=== PATIENT | male | born 1995 | race Caucasian/White ===

== ENCOUNTER 2020-10-03 00:19 | Emergency (ER) | payer SELFPAY ==
[2020-10-03 00:25] VITALS: BP 154/75; PULSE 83; RESP 16; TEMP 36.7; O2SAT 98; BMI 38.0
--- NOTE | 2020-10-03 00:25 | XRR_ITS ---
PROCEDURE INFORMATION: Exam: XR Chest, 1 View Exam date and time: 10/03/2020 12:44 AM Age: 25 years old Clinical indication: Left-sided chest pain; Additional info: Cp x 2 days TECHNIQUE: Imaging protocol: XR of the chest Views: 1 view. COMPARISON: No relevant prior studies available. FINDINGS: Lungs: No consolidation. Pleural space: No pleural effusion. No pneumothorax. Heart/Mediastinum: No cardiomegaly. Bones/joints: No acute fracture. XR/XR chest 1V portable [id number] IMPRESSION: No acute findings.
[2020-10-03 00:31] VITALS: BP 163/82; PULSE 123; RESP 24; O2SAT 98
--- NOTE | 2020-10-03 00:31 | ECG_ITS ---
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 Measurements Intervals [place] Rate: 82 P: 20 CO: 200 QRS: 26 QRSD: 100 T: 21 QT: 362 QTc: 423 Interpretive Statements SINUS RHYTHM No previous ECG available for comparison Electronically Signed On 10-03-2020 20:12:33 MILL SET UP by Josephine Newell M.D. [id number]
--- NOTE | 2020-10-03 00:36 | W.ED.CHESTPA ---
HPI - Chest Pain General: Chief Complaint: Chest Pain Stated Complaint: suspects he's having heart attack/chest pain Time Seen by Provider: 10/03/20 00:25 Source: patient Mode of arrival: ambulatory Limitations: no limitations History of Present Illness: HPI narrative: 25-year-old male who states he has been having chest pain and left arm pain for 2 months. Patient states the pain is been sharp and is worse with movement of his left arm especially over his head. He denies any improving factors. States the pain over the last 2 days has gotten worse. He denies any shortness of breath. Denies any cough or fever. Denies any nausea or vomiting. He has no history of heart disease. Associated symptoms: Deny abdominal pain, dyspnea, fever(s), nausea or vomiting Review of Systems Const: Denies: fever(s), chills, body aches or change in appetite Eyes: Denies: blurry vision or eye discomfort ENMT: Denies: throat pain or dental pain Card: Reports: chest pain Resp: Denies: dyspnea GI: Denies: abdominal pain, nausea, vomiting or diarrhea : Denies: dysuria Musc: Denies: neck pain or back pain Skin/Breast: Denies: rash Neuro: Denies: headache(s) Psych: Denies: depression Mikhail/Lymph: Denies: easy bruising All/Imm: Denies: urticaria Physical Exam Const: COMMON NORMALS: no acute distress, patient oriented x3 and healthy appearing HENMT: COMMON NORMALS: normocephalic and atraumatic HEAD & SCALP: normocephalic and atraumatic Eye: COMMON NORMALS: Equal, round and reactive pupils present and EOMs intact bilaterally PUPIL: Yes Equal, round and reactive pupils present Neck/C-Spine: COMMON NORMALS: full ROM and supple Chest: COMMONS NORMALS: normal inspection of the chest and normal palpation of entire chest wall Resp: COMMON NORMALS: normal respiratory effort, No retractions, No use of accessory muscles and clear to auscultation bilaterally AUSCULTATION: clear to auscultation bilaterally Cardio: COMMON NORMALS: regular rate, regular rhythm and No murmurs present (Cardio) RATE: regular rate RHYTHM: regular rhythm GI: COMMON NORMALS: Normal to inspection, nondistended, normoactive bowel sounds present, Soft to palpation, non-tender and no masses PALPATION: Yes Soft to palpation Extremity: COMMON NORMALS: normal to inspection and full ROM Neuro: COMMON NORMALS: patient oriented x3, moves all extremities and no focal motor deficits Psych: COMMON NORMALS: mental status grossly normal, Normal thought process present and cooperative THOUGHT PROCESS: Normal thought process present Skin: COMMON NORMALS: no rashes or lesions noted and no wounds GENERAL SKIN EXAM: no rashes or lesions noted Course Reevaluation(s): Reevaluation #1: On the suicidal questionnaire patient answered yes to being suicidal. I went spoke to him he states that yes with his ADHD is suicidal thoughts every day but he deals with it and has no plan and does not feel like he is a threat to kill himself. He states he was just answering the questions honestly. I spoke to Dr. Anderson psychiatry to clear patient. He states that he will see him first thing in the morning. Time: 00:54 Vital Signs: Vital signs: Vital Signs Temperature 98.0 F 10/03/20 00:25 Pulse Rate 123 H 10/03/20 00:31 Respiratory Rate 24 H 10/03/20 00:31 Blood Pressure 163/82 10/03/20 00:31 Pulse Oximetry 98 10/03/20 00:31 MDM - Chest Pain MDM Narrative: Medical decision making narrative: Patient presents with chest pain is atypical in nature. He is young and healthy EKG troponin x-ray are all normal. Patient was assessed by Dr. Chan as well for his depression and he feels he is stable for discharge he is no imminent threat to himself. I believe patient is stable as well. He is to follow-up his PCP and return if worsening. He has no signs of pulmonary embolism or aortic dissection. Lab Data: Labs: Lab Results 10/03/20 10/03/20 10/03/20 Range/Units 01:50 01:50 01:50 WBC 14.3 H (4.0-10.0) 10^3/ uL RBC 4.93 (4.1-5.3) 10^6/u L Hgb 15.3 (11.7-16.6) g/dL Hct 43.5 (42.0-52.0) % MCV 88.2 (80-94) fL MCH 31.0 (28.0-34.0) pg MCHC 35.2 (30.0-36.0) g/dL RDW 11.6 L (12.1-15.1) % Plt Count 245 (130-400) 10^3/c mm MPV 10.5 H (7.4-10.4) fL Neut % (Auto) 59.3 % Lymph % (Auto) 31.5 % [place] % (Auto) 7.0 % Eos % (Auto) 1.6 % Baso % (Auto) 0.4 % Neut # (Auto) 8.46 H (1.8-7.7) 10^3/u L Lymph # (Auto) 4.5 (0.8-4.8) 10^3/u L [place] # (Auto) 1.0 H (0.2-0.9) 10^3/u L Eos # (Auto) 0.2 (0.0-0.8) 10^3/u L Baso # (Auto) 0.1 (0.0-0.1) 10^3/u L Nucleated RBC % (a uto) 0 % Nucleated RBCs # 0.0 /100WBC Sodium 138 (136-145) mmol/L Potassium 3.7 (3.5-5.1) mmol/L Chloride 100 (98-107) mmol/L Carbon Dioxide 24 (22-29) mmol/L Anion Gap 17.7 (5-19) BUN 22 H (6-20) mg/dL Creatinine 0.7 (0.7-1.2) mg/dL GFR Calculation 136.3 H (90-130) mL/min Glucose 102 (65-115) mg/dL Calculated Osmolal ity 290 (285-295) mOsm/k g Calcium 9.5 (8.5-10.5) mg/dL Total Bilirubin 0.3 (0.15-1.2) mg/dL AST 22 (0-40) U/L ALT 36 (0-41) U/L Alkaline Phosphata se 76 (40-130) IU/L Troponin T Baselin e 6 (0-15) ng/L Total Protein 6.9 (6.6-8.7) g/dL Albumin 4.3 (3.5-5.2) g/dL Globulin 2.6 (1.3-4.6) g/dL EKG Data^: EKG 1: Attestation: I personally reviewed and interpreted this EKG as follows: EKG interpretation date: 10/03/20 EKG interpretation time: 00:32 Interpretation: nsr hr [address] or t wave abnormalities qrs 100 qtc 400 Discharge Plan Discharge Patient Disposition: Home Clinical Impression: Chest pain Qualifiers: Chest pain type: unspecified Qualified Code(s): R07.9 - Chest pain, unspecified Depression Qualifiers: Depression Type: unspecified Qualified Code(s): F32.9 - Major depressive disorder, single episode, unspecified Condition: Stable Discharge Orders: Discharge ED (Routine); Ordered 10/03/20 Ordered By: Kayleigh Boswell Discharge Diet: Advance as tolerated Discharge Activity: Resume usual activity Patient Instructions: Chest Pain (ED) Coding Level of Care Code ED Assistant Golf 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
[2020-10-03 02:08] VITALS: BP 147/78; PULSE 84; RESP 15; O2SAT 98
[2020-10-03 02:13] LABS: Basophils # 0.1 10^3/uL (0.0-0.1); Basophils % 0.4 %; Eosinophils # 0.2 10^3/uL (0.0-0.8); Eosinophils % 1.6 %; Hematocrit 43.5 % (42.0-52.0); Hemoglobin 15.3 g/dL (11.7-16.6); Lymphocytes # 4.5 10^3/uL (0.8-4.8); Lymphocytes % 31.5 %; Mean Corpuscular HGB Conc 35.2 g/dL (30.0-36.0); Mean Corpuscular Volume 88.2 fL (80-94); Mean Platelet Volume 10.5 fL (7.4-10.4); Neutrophils # 8.46 10^3/uL (1.8-7.7); Neutrophils % 59.3 %; Nucleated Red Blood Cells % 0 %; Platelet Count 245 10^3/cmm (130-400); Red Blood Count 4.93 10^6/uL (4.1-5.3); Red Cell Distribution Width 11.6 % (12.1-15.1); White Blood Count 14.3 10^3/uL (4.0-10.0)
--- NOTE | 2020-10-03 02:21 | PC.NURSE ---
pt refused ativan due to concerns of possible opioid relapse
[2020-10-03 02:40] LABS: Alanine Aminotransferase 36 U/L (0-41); Albumin Level 4.3 g/dL (3.5-5.2); Alkaline Phosphatase 76 IU/L (40-130); Anion Gap 17.7 (5-19); Aspartate Amino Transferase 22 U/L (0-40); Blood Urea Nitrogen 22 mg/dL (6-20); Calcium 9.5 mg/dL (8.5-10.5); Carbon Dioxide 24 mmol/L (22-29); Chloride 100 mmol/L (98-107); Globulin 2.6 g/dL (1.3-4.6); Glomerular Filtration Rate 136.3 mL/min (90-130); Glucose 102 mg/dL (65-115); Osmolality Calculated 290 mOsm/kg (285-295); Potassium 3.7 mmol/L (3.5-5.1); Sodium 138 mmol/L (136-145); Total Bilirubin 0.3 mg/dL (0.15-1.2); Total Protein 6.9 g/dL (6.6-8.7)
[2020-10-03 02:43] LABS: Troponin(5th) Baseline 6 ng/L (0-15)
[2020-10-03 03:00] VITALS: BP 121/65; PULSE 65; RESP 18; O2SAT 100
--- NOTE | 2020-10-03 03:00 | PC.NURSE ---
during initial triage, pt yes to mental health assessment regarding depression and suicide. Pt becoming agitated when informed by the physician that he will have a mental health eval. Pt refusing all medical tx, until he has been cleared by mental health physician. notified. Pt consented to blodd draw after mental health clearance. Pt still refusing ativan due to possible relapse of opioid dependence. notified
== END 2020-10-03 03:02 | disposition home or self-care (01) ==
PROVIDERS: Emergency Provider Emergency Medicine
DX: R07.9 Chest pain, unspecified (principal); F32.9 Major depressive disorder, single episode, unspecified
CPT/HCPCS: 12345; 71045; 80053; 84484; 85025; 93005; 99281; 99284

== ENCOUNTER → 2021-09-19 09:44 | Outpatient (BNVA) | payer BC, SELFPAY | PROVIDERS: PCP Family Medicine; Visit Provider Family Medicine | DX: R68.82 Decreased libido (principal); R53.83 Other fatigue | CPT/HCPCS: 84403; 84443 ==

== ENCOUNTER 2021-11-14 13:00 | Outpatient (CLI) | payer BC, SELFPAY | END 2021-11-14 13:01 | disposition home or self-care (01) | PROVIDERS: PCP Family Medicine; Visit Provider Physician Assistant | DX: G47.10 Hypersomnia, unspecified (principal) | CPT/HCPCS: G0399 ==

== ENCOUNTER 2021-12-18 08:16 | Outpatient (CLI) | payer BC, SELFPAY ==
[2021-12-18 08:37] VITALS: BMI 40.6
--- NOTE | 2021-12-18 08:38 | ECG_ITS ---
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 Interpretive Statements NAME OF STUDY: TREADMILL STRESS TEST INDICATION: Chest Pain Baseline blood pressure of 133/95 mm Hg, heart rate of 96 beats per minute and oxygen saturation of 95%. EKG showed normal sinus rhythm, normal axis with normal ST-Ts. Poor anterior R wave progression. The patient exercised for 7 minutes 34 seconds on a standard Guero protocol. Patient attained a maximum heart rate of 186 beats per minute(96% of the maximum predicted heart rate) with a blood pressure at the peak exercise of 183/90 mm Hg and oxygen saturation of 95%. The EKG at the peak exercise revealed sinus tachycardia with no significant ST-T wave changes. Patient did not have any chest pain or any significant arrhythmis with the exercise. The study was terminated due to maximal effort. During the recovery phase, there were no new changes. Blood pressure at the end of the recovery phase was 137/100 mm Hg with a heart rate of 105 beats per minute and oxygen saturation 96%. CONCLUSION: 1. Normal EKG response to treadmill exercise. 2. No exercise-induced chest pain or cardiac arrhythmia. 3. Good exercise tolerance for age, attained a maximum of 10.2 METs. Maximum VO2 of 35.7 mL/kg/min. 4. Baseline hypertension with normal response to exercise. 5. Clarke treadmill score of 7.5, suggestive of low risk. RESULTS TO JOSE RUTLEDGE Electronically Signed On 12-18-2021 17:10:02 CDT by Josephine Newell M.D. [id number]
[2021-12-18 09:15] VITALS: BP 136/83; PULSE 103
== END 2021-12-18 08:17 | disposition home or self-care (01) ==
LOC: CDL 08:18
PROVIDERS: PCP Family Medicine; Visit Provider Physician Assistant
DX: R07.9 Chest pain, unspecified (principal); I10 Essential (primary) hypertension
CPT/HCPCS: 93017

== ENCOUNTER → 2022-12-02 08:27 | Outpatient (BNVA) | payer SELFPAY | PROVIDERS: PCP Family Medicine; Visit Provider Family Medicine | DX: R79.89 Other specified abnormal findings of blood chemistry (principal); Z68.41 Body mass index [BMI] 40.0-44.9, adult; M31.6 Other giant cell arteritis | CPT/HCPCS: 80053; 80061; 82040; 84270; 84403; 85025; 85651; 86140 ==

== ENCOUNTER → 2024-05-10 12:13 | Outpatient (BNVA) | payer MEDICAID, SELFPAY | PROVIDERS: PCP Family Medicine; Visit Provider Family Medicine | DX: G43.909 Migraine, unspecified, not intractable, without status migrainosus (principal) | CPT/HCPCS: 80053; 80061; 80307; 84439; 84443; 85025; 85651; 86140 ==

== ENCOUNTER 2024-09-17 10:06 | Outpatient (CLI) | payer MEDICAID, SELFPAY ==
--- NOTE | 2024-09-17 10:15 | US_ITS ---
WS: [id number] Limited abdomen ultrasound. HISTORY: LEFT upper quadrant mass. Ultrasound directed to the LEFT upper quadrant in the area of interest. In the area of interest is a lobulated mildly heterogeneous mass with areas of decreased and increased echogenicity. Entire lobula tion measures 3.7 x 1.5 cm. There is a central component which is more echogenic measuring 1.3 x 0.6 cm. There is no increased vascularity. US/US abdomen limited [id number] IMPRESSION: Palpable area in the LEFT upper abdomen is most consistent with a lipoma.
== END 2024-09-17 10:07 | disposition home or self-care (01) ==
LOC: RAD 10:11
PROVIDERS: PCP Family Medicine; Visit Provider Family Medicine
DX: R19.02 Left upper quadrant abdominal swelling, mass and lump (principal)
CPT/HCPCS: 76705

== ENCOUNTER 2024-11-16 23:23 | Emergency (ER) | payer SELFPAY ==
[2024-11-16 23:28] VITALS: BP 146/97; PULSE 70; RESP 14; TEMP 36.5; O2SAT 97; BMI 38.7
--- NOTE | 2024-11-17 01:21 | ED_ITS ---
HPI - General Adult 2 General: Chief complaint: General Medical Stated complaint: Left Arm Numb\with Shooting Pains Time Seen by Provider: 11/17/24 01:24 History of Present Illness: Patient presents to the ER with complaints of shooting pain and tingling up his left arm from his fingers up into his neck and up into the left side of his head for the last several days. He also described a lump in his left anterior forearm. He says he has had these before in the past but is not as bad. He says the pain follows the path of a vein from his hand up to his elbow to his shoulder up into his neck. He said over the past few days the pain has gotten worse but is actually not too bad right now. And the lump is actually gone down. Patient denies any overt trauma overuse or any other complaints. Related Data Previous Rx's ?Medication ?Instructions ?Recorded propranolol 10 mg tablet 10 mg PO BID PRN anxiety #60 tabs 06/18/24 trazodone 50 mg tablet 50 mg PO DIRECTED PRN sle ep #60 09/20/24 tabs dextroamphetamine-amphetamine ER 40 mg (2 x 20 mg) PO QAM 30 days 11/10/24 20 mg 24hr capsule,extend release #60 caps (Adderall XR) Allergies Allergy/AdvReac Type Severity Reaction Status Date / Time No Known Allergies Allergy Verified 11/16/24 23:31 Review of Systems 2 General: Reports: 10 or more systems reviewed and unremarkable except in HPI and below PFSH ED 2 PFSH: Medical History ADHD (attention deficit hyperactivity disorder), 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 Generalized anxiety disorder Major depressive disorder, recurrent severe without psychotic features Chronic post-traumatic stress disorder Psychiatric care Scoliosis Surgical History History of ankle surgery Family History Grandfather Cancer colorectal--maternal Mother Fibromyalgia Hypertension Diabetes Arrhythmia Father Hypertension Stroke, Onset Age: 32 Diabetes Other CAD (coronary artery disease) Hyperlipidemia Lung disease Denies family history of Clotting disorder Dementia Psychiatric illness Chronic kidney disease (CKD) Anesthesia complication Bleeding disorder Social History (Reviewed 11/17/24 @ 01:23 by LIT Wilkerson Smoking and tobacco/nicotine status: former use of tobacco/nicotine Alcohol intake: former Former alcohol use details: drank heavily in high school Substance/Drug Use: current Substance/Drug use frequency: few times a month Other substance/drug use details: Medicinal Lives independently: Yes Marital status: Number of children: 1 service: No Current occupational status: employed 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 Current gender identity: Male Special kori needs: No Agree to transfusion: Yes Physical Exam 2 Const: COMMON NORMALS: no acute distress, average body habitus, patient oriented x3, no limitations, healthy appearing, alert and well nourished HENMT: COMMON NORMALS: normocephalic, atraumatic, hearing grossly normal bilaterally, external ears normal, Normal external nose present, moist oral mucous membranes and oropharynx normal HEAD & SCALP: normocephalic and atraumatic NOSE: Normal external nose present EXTERNAL EAR: Yes external ears normal Eye: COMMON NORMALS: Equal, round and reactive pupils present, EOMs intact bilaterally, conjunctivae normal and no scleral icterus CONJUNCTIVA: Yes conjunctivae normal PUPIL: Yes Equal, round and reactive pupils present Neck/C-Spine: COMMON NORMALS: no JVD Chest: COMMONS NORMALS: normal inspection of the chest and normal palpation of entire chest wall Resp: COMMON NORMALS: normal respiratory effort, No retractions, No use of accessory muscles and clear to auscultation bilaterally AUSCULTATION: clear to auscultation bilaterally Cardio: COMMON NORMALS: no JVD, regular rate, regular rhythm, S1 normal heart sound present, S2 normal heart sound present, No gallops present (Cardio), No clicks present (Cardio), No murmurs present (Cardio) and No rub (Cardio) R ATE: regular rate RHYTHM: regular rhythm HEART SOUNDS: S1 normal heart sound present and S2 normal heart sound present Extremity: NARRATIVE EXTREMITY EXAM: No evidence indicative exam of left arm from hand forearm elbow upper arm shoulder neck other than very small possible lump on anterior surface left forearm within the patient's tattoo. Minimal tenderness with palpation otherwise benign exam. Neuro: COMMON NORMALS: patient oriented x3 SENSORIUM/ORIENTATION: Yes alert Course 2 Vital Signs: Vital signs: Vital Signs Temperature 97.7 F 11/16/24 23:28 Pulse Rate 74 11/17/24 03:47 Respiratory Rate 16 11/17/24 03:47 Blood Pressure 159/72 11/17/24 03:47 Pulse Oximetry 98 11/17/24 03:47 Oxygen Delivery Me thod Room Air 11/17/24 01:36 MDM - General Adult Medical Decision Making Lab work was reviewed, CBC CMP CRP all normal. Patient be discharged home and should follow-up with his PCP for further evaluation and treatment. Medical Records I reviewed the patient's medical records. Lab Data I reviewed the patient's lab results. 11/17/24 02:07 11/17/24 02:07 Laboratory Results WBC 11.25 10^3/uL (3.29-11.43) 11/17/24 02:07 RBC 4.63 10^6/uL (3.85-5.65) 11/17/24 02:07 Hgb 14.20 g/dL (11.27-16.99) 11/17/24 02:07 Hct 41.1 % (37-53) 11/17/24 02:07 MCV 88.8 fl (82-101) 11/17/24 02:07 MCH 30.7 pg (27-33) 11/17/24 02:07 MCHC 34.5 g/dL (30-55) 11/17/24 02:07 RDW 12.8 % (12.1-15.1) 11/17/24 02:07 Plt Count 264 10^3/cmm (157-399) 11/17/24 02:07 MPV 10.2 fL (7.4-10.4) 11/17/24 02:07 Neut % (Auto) 45.3 % 11/17/24 02:07 Lymph % (Auto) 42.5 % 11/17/24 02:07 [place] % (Auto) 7.6 % 11/17/24 02:07 Eos % (Auto) 4.1 % 11/17/24 02:07 Baso % (Auto) 0.4 % 11/17/24 02:07 Neut # (Auto) 5.10 10^3/uL (1.8-7.7) 11/17/24 02:07 Lymph # (Auto) 4.8 10^3/uL (0.8-4.8) 11/17/24 02:07 [place] # (Auto) 0.9 10^3/uL (0.2-0.9) 11/17/24 02:07 Eos # (Auto) 0.5 10^3/uL (0.0-0.8) 11/17/24 02:07 Baso # (Auto) 0.1 10^3/uL (0.0-0.1) 11/17/24 02:07 Nucleated RBC % (auto) 0 % 11/17/24 02:07 Nucleated RBCs # 0.0 /100WBC 11/17/24 02:07 Sodium 143 mmol/L (136-145) 11/17/24 02:07 Potassium 3.9 mmol/L (3.5-5.1) 11/17/24 02:07 Chloride 103 mmol/L (98-107) 11/17/24 02:07 Carbon Dioxide 28 mmol/L (22-29) 11/17/24 02:07 Anion Gap 15.9 (5-19) 11/17/24 02:07 BUN 15 mg/dL (6-20) 11/17/24 02:07 Creatinine 0.8 mg/dL (0.7-1.2) 11/17/24 02:07 GFR Calculation 113.5 mL/min (90-130) 11/17/24 02:07 Glucose 115 mg/dL (65-115) 11/17/24 02:07 Calculated Osmolality 298 mOsm/kg (285-295) H 11/17/24 02:07 Calcium 9.3 mg/dL (8.5-10.5) 11/17/24 02:07 Total Bilirubin 0.4 mg/dL (0.15-1.2) 11/17/24 02:07 AST 16 U/L (0-40) 11/17/24 02:07 ALT 26 U/L (0-41) 11/17/24 02:07 Alkaline Phosphatase 73 U/L (40-130) 11/17/24 02:07 C-Reactive Protein 3.0 mg/L (0.0-4.9) 11/17/24 02:07 Total Protein 7.1 g/dL (6.6-8.7) 11/17/24 02:07 Albumin 4.4 g/dL (3.5-5.2) 11/17/24 02:07 Globulin 2.7 g/dL (1.3-4.6) 11/17/24 02:07 TSH 2.81 uIU/mL (0.27-4.20) 11/17/24 02:07 All radiology interpretation(s) finalized by discharge Discharge Plan Discharge Patient Disposition: Home Clinical Impression: Paresthesia and pain of left extremity Condition: Stable Prescriptions: No Action propranolol 10 mg tablet 10 mg PO BID PRN (Reason: anxiety) Qty: 60 6RF Rx Instructions: May take one tablet twice per day as needed for anxiety trazodone 50 mg tablet 50 mg PO DIRECTED PRN (Reason: sleep) Qty: 60 3RF Rx Instructions: May take one to two tablets 30 min prior to bedtime as needed for sleep dextroamphetamine-amphetamine [Adderall XR] 20 mg capsule,extended release 24hr 40 mg PO QAM 30 Days Qty: 60 0RF Rx Instructions: Take two capsules at 6 am Discharge Orders: Discharge ED (Routine); Ordered 11/17/24 Ordered By: Christian Spann Referrals: Yovani Parada MD [Primary Care Provider] - 1 week Patient Instructions: Paresthesia (ED) Activity Restrictions/Additional Instructions: Your evaluation by clinical exam and lab work did not reveal any acute cause of your symptomatology. Your inflammatory markers are normal, your white blood cell count is normal, as is your thyroid your liver and your kidneys. Please follow-up with your family practice physician within the next 7 days for further evaluation and treatment. Thank you for choosing [facility] for your healthcare needs today. Please realize that you were seen in the emergency department and that we are providing you with an emergency medical screening exam and this may not be a complete and all exclusive of all testing and/or medical workup we may need to determine your element or severity of your illness. It is very important that you follow-up as instructed with your primary care provider or specialist for the additional evaluation and to discuss your medical treatment plan. You may return to the emergency department should you have concerns or if your condition changes or worsens in any way. Print Language: Swedish Coding Level of Care Code ED Baseball Club Manager for Alyson Gerber
[2024-11-17 01:36] VITALS: BP 124/95; PULSE 80; RESP 16; O2SAT 98
[2024-11-17 02:31] LABS: Basophils # 0.1 10^3/uL (0.0-0.1); Basophils % 0.4 %; Eosinophils # 0.5 10^3/uL (0.0-0.8); Eosinophils % 4.1 %; Hematocrit 41.1 % (37-53); Lymphocytes # 4.8 10^3/uL (0.8-4.8); Lymphocytes % 42.5 %; Mean Corpuscular HGB Conc 34.5 g/dL (30-55); Mean Corpuscular Hemoglobin 30.7 pg (27-33); Mean Corpuscular Volume 88.8 fl (82-101); Mean Platelet Volume 10.2 fL (7.4-10.4); Monocytes # 0.9 10^3/uL (0.2-0.9); Monocytes % 7.6 %; Neutrophils % 45.3 %; Nucleated Red Blood Cells % 0 %; Platelet Count 264 10^3/cmm (157-399); Red Blood Count 4.63 10^6/uL (3.85-5.65); Red Cell Distribution Width 12.8 % (12.1-15.1); White Blood Count 11.25 10^3/uL (3.29-11.43)
[2024-11-17 03:10] LABS: Alanine Aminotransferase 26 U/L (0-41); Albumin Level 4.4 g/dL (3.5-5.2); Alkaline Phosphatase 73 U/L (40-130); Anion Gap 15.9 (5-19); Aspartate Amino Transferase 16 U/L (0-40); Blood Urea Nitrogen 15 mg/dL (6-20); Calcium 9.3 mg/dL (8.5-10.5); Carbon Dioxide 28 mmol/L (22-29); Chloride 103 mmol/L (98-107); Creatinine Clr Calc Pharmacy 177.1993; Globulin 2.7 g/dL (1.3-4.6); Glomerular Filtration Rate 113.5 mL/min (90-130); Glucose 115 mg/dL (65-115); Osmolality Calculated 298 mOsm/kg (285-295); Potassium 3.9 mmol/L (3.5-5.1); Sodium 143 mmol/L (136-145); Total Bilirubin 0.4 mg/dL (0.15-1.2); Total Protein 7.1 g/dL (6.6-8.7)
[2024-11-17 03:13] LABS: Thyroid Stimulating Hormone 2.81 uIU/mL (0.27-4.20)
[2024-11-17 03:47] VITALS: BP 159/72; PULSE 74; RESP 16; O2SAT 98
== END 2024-11-17 03:49 | disposition home or self-care (01) ==
PROVIDERS: Emergency Provider Emergency Medicine; PCP Family Medicine
DX: M79.602 Pain in left arm (principal); R20.2 Paresthesia of skin; Z87.891 Personal history of nicotine dependence
CPT/HCPCS: 36415; 80053; 84443; 85025; 86140; 99283

== ENCOUNTER → 2025-03-03 10:36 | Outpatient (BNVA) | payer MEDICAID, SELFPAY | PROVIDERS: PCP Family Medicine; Referring Provider Nurse Practitioner Psychiatric/Mental Health; Visit Provider Psychiatry & Neurology Neurology | DX: G43.909 Migraine, unspecified, not intractable, without status migrainosus (principal) | CPT/HCPCS: 36415; 82306; 82607; 82746; 83735; 83921 ==

== ENCOUNTER 2025-03-21 07:48 | Outpatient (CLI) | payer MEDICAID, SELFPAY ==
--- NOTE | 2025-03-21 08:00 | MR_ITS ---
WS: [id number] MRI HEAD WITH CONTRAST TECHNIQUE: Sagittal T1, T2 axial, T2 axial FLAIR, axial susceptibility weighted imaging, axial diffusion weighted images, and coronal T2 images were obtained. Pre and post-T1 axial and post T1 coronal images. ADC and FSPGR images. CLINICAL INFORMATION: G43.909 - Migraine, unspecified, not intractable, without... COMPARISON: None. FINDINGS: No evidence of restricted diffusion to suggest acute ischemia. No suspicious intracranial signal abnormalities. Mild mucosal thickening in the paranasal sinuses. Mastoid air cells are well aerated. No hemosiderin. Normal optic chiasm and pituitary infundibulum. Normal posterior fossa. Normal vascular flow voids at the skull base. Normal optic chiasm and pituitary infundibulum. No abnormal gadolinium enhancement. MR/MR head wo/w con [id number] IMPRESSION: 1. No evidence of restricted diffusion to suggest acute ischemia. 2. No suspicious intracranial signal normalities. 3. No hemosiderin. 4. No abnormal gadolinium enhancement.
--- NOTE | 2025-03-21 08:45 | MR_ITS ---
WS: [id number] MR CERVICAL SPINE WO/W HISTORY: M54.2 - Cervicalgia TECHNIQUE: Sagittal T1, T2 and T2 inversion recovery; axial T2, T2 gradient and fiesta. Post gadolinium imaging with fat saturation technique. FINDINGS:Straightening of the normal cervical lordosis. No high grade central canal narrowing. Cord signal is normal. Cord signal is normal. C2-3: Mild facet arthropathy. Uncovertebral joint hypertrophy. Mild LEFT foraminal narrowing. C3-4: Mild disc bulging with endplate ridging. Moderate LEFT and mild RIGHT foraminal narrowing. Mild facet arthropathy. Mild central canal stenosis. C4-5: Mild facet arthropathy. Central protrusion with indentation cervical cord. Mild central canal stenosis. Mild bilateral foraminal narrowing. C5-6: RIGHT paracentral protrusion with indentation on the RIGHT ventral cervical cord. Mild central canal stenosis. Mild LEFT and no significant RIGHT foraminal narrowing. Mild facet arthropathy. C6-7: Tiny RIGHT Central disc osteophyte protrusion. Mild LEFT and no significant RIGHT foraminal narrowing. Mild facet arthropathy. Uncovertebral joint hypertrophy. C7-T1: Tiny central disc protrusion. Spinal canal and foramen are patent. MR/MR cervical spine wo/w [id number] IMPRESSION: 1. Cord signal is normal. No abnormal gadolinium enhancement. 2. Mild central canal stenosis with disc osteophyte protrusions C4-C5 and C5-C 6 with slight indentation on the cervical cord. 3. Small RIGHT paracentral disc osteophyte protrusion at C6-7. 4. Mild to moderate multilevel bony foraminal narrowing described above.
[2025-03-21] MEDS: gadobenate dimeglumine 20 mL vial IV (08:53)
== END 2025-03-21 07:49 | disposition home or self-care (01) ==
LOC: RAD 07:49
PROVIDERS: PCP Family Medicine; Visit Provider Psychiatry & Neurology Neurology
DX: G43.909 Migraine, unspecified, not intractable, without status migrainosus (principal); R90.89 Other abnormal findings on diagnostic imaging of central nervous system; M48.02 Spinal stenosis, cervical region; G95.89 Other specified diseases of spinal cord; M50.23 Other cervical disc displacement, cervicothoracic region; M50.223 Other cervical disc displacement at C6-C7 level; M47.812 Spondylosis without myelopathy or radiculopathy, cervical region; M99.63 Osseous and subluxation stenosis of intervertebral foramina of lumbar region; M46.92 Unspecified inflammatory spondylopathy, cervical region; M40.202 Unspecified kyphosis, cervical region
CPT/HCPCS: 70553; 72156

== ENCOUNTER → 2025-07-13 15:13 | Outpatient (BNVA) | payer OTHER, SELFPAY | PROVIDERS: PCP Family Medicine; Visit Provider Nurse Practitioner Psychiatric/Mental Health | DX: Z79.899 Other long term (current) drug therapy (principal) | CPT/HCPCS: 80053; 80061; 82306; 83036 ==